=== PATIENT | female | born 1960 | race Caucasian/White ===

== ENCOUNTER 2017-01-21 11:13 | Day surgery (SDC) | payer BC ==
[~2017-01-21] VITALS: Ht 160 cm; Wt 72.0 kg
[~2017-01-21 11:13] MED LIST: FIBER PO; STOOL SOFTENER PO
[2017-01-21 12:15] VITALS: Ht 160 cm; Wt 72.0 kg
[2017-01-21 12:19] VITALS: BP 116/61; PULSE 64; RESP 20
[2017-01-21 12:50] LABS: INR 0.91; PROTIME 12.3 Sec (12.2-14.2)
[2017-01-21 12:51] LABS: PARTIAL THROMBOPLASTIN TIME 28.3 Sec (25.0-35.0)
[2017-01-21 12:51] LABS: ADD UMIC YES; URINE BILIRUBIN (Dip) NEGATIVE (NEGATIVE); URINE BLOOD (Dip) TRACE (NEGATIVE); URINE COLOR LT. YELLOW (YELLOW); URINE GLUCOSE (Dip) NEGATIVE (NEGATIVE); URINE KETONES (Dip) NEGATIVE (NEGATIVE); URINE LEUKOCYTE ESTERASE (Dip) 1+ (NEGATIVE); URINE NITRITE (Dip) POSITIVE (NEGATIVE); URINE TOTAL PROTEIN (Dip) NEGATIVE (NEGATIVE); URINE UROBILINOGEN (Dip) 0.2 E.U./dL (0.1-1.0)
[2017-01-21 13:06] LABS: BACTERIA,URINE MANY; URINE RBCS 0-2 /HPF (0)
== END 2017-01-21 18:04 | disposition home or self-care (01) ==
LOC: SDS 11:13
PROVIDERS: ATTEND Podiatrist Primary Podiatric Medicine
DX: G57.62 Lesion of plantar nerve, left lower limb (principal); Z53.9 Procedure and treatment not carried out, unspecified reason
CPT/HCPCS: 81001; 81003; 85610; 85730

== ENCOUNTER 2017-01-28 07:08 | Day surgery (SDC) | payer BC ==
[2017-01-28] VITALS (12 sets, daily range): BP systolic 97–128; BP diastolic 51–64; PULSE 60–86; RESP 14–18; Ht 160 cm; Wt 73.0 kg
[~2017-01-28] VITALS: Ht 160 cm; Wt 73.0 kg
[~2017-01-28 07:08] MED LIST changes: +ATROPINE 1 MG/10 ML SYRINGE IV PRN; +DIPHENHYDRAMINE 50 MG INJ IV PRN; +EPHEDrine SULFATE 50 MG/5 ML SYG IV PRN; +FENTAnyl 50 MCG/ML VIAL IV PRN; -FIBER PO; +HYDROmorphONE (0.2 MG/ML) 10ML SYG IV PRN; +LABETALOL HCL 20MG INJ IV PRN; +MEPERIDINE 25 MG INJ IV PRN; +MIDAZOLAM 1 MG/ML 2 ML INJ IV PRN; +ONDANSETRON 4 MG INJ IV PRN; +OXYCODONE/ACETAMINOPHEN (5/325) TAB PO PRN; -STOOL SOFTENER PO; +hydrALAzine 20 MG INJ IV PRN; +morphine (1 MG/ML) 10ML SYRINGE IV PRN
--- NOTE | 2017-01-28 08:30 | HPN ---
Date/Time of Note Date/Time of Note DATE: 01/28/17 TIME: 08:30 Interval H&P Admission Note Pt. seen H&P reviewed: No system changes TAWANA SNYDER DPM Jan 28, 2017 08:30
[2017-01-28] MEDS ORDERED: NITR-58 PO (08:34)
[2017-01-28] MEDS ORDERED: AMIT50TA3 PO (08:34)
[2017-01-28] MEDS ORDERED: BUPIVACAINE 0.5% (SDV) 30 ML INJ ONE (09:36)
[2017-01-28] MEDS ORDERED: LIDOCAINE 0.5% (MDV) 50 ML INJ ONE (09:37)
--- NOTE | 2017-01-29 00:53 | OPR ---
DATE OF OPERATION: 01/28/2017 SURGEON: TAWANA SNYDER DPM ANESTHESIOLOGIST: Dr. Al. ANESTHESIA: Local with IV sedation. PREOPERATIVE DIAGNOSIS: Painful Hand's neuroma, left foot. POSTOPERATIVE DIAGNOSIS: Painful Hand's neuroma, left foot. OPERATION PERFORMED: Excision of neurofibroma, left third intermetatarsal space. DESCRIPTION OF PROCEDURE: The patient was brought into the operating room, placed on a table in a s ecure supine position. Cardiac monitoring, IV sedation, and an ankle pneumatic tourniquet were util ized for this case. Preoperatively, a total of 8 mL of 0.5% Marcaine plain mixed with 2% lidocaine plain were infiltrated in the form of a local block to the left foot. Upon achieving anesthesia, th e left foot and leg were prepped and draped in the usual sterile manner. The ankle pneumatic tourni quet was then inflated to 250 mmHg. Procedure #1 was then performed, excision of neurofibroma, left third intermetatarsal space. A 4 cm dorsal incision was placed between the 3rd and 4th metatarsals . Incision was deepened. Superficial bleeders were cauterized and bovied as necessary. The incisi on was then deepened down through the deep intermetatarsal ligament, which was severed. The hypertr ophic nerve tissue was identified and its terminal branches. The nerve trunk and its terminal branc hes was transected proximal to the metatarsal heads and buried into the adjacent muscle belly. The surgical site was irrigated with sterile saline mixed with bacitracin solution. Deep tissue was edinson sed with 4-0 Vicryl simple interrupted sutures. The skin edges were reapproximated with 3-0 Prolene subcuticular running stitch. The dressing consisted of tincture of benzoin, quarter-inch Steri-Str ips, Xeroform gauze, 4 x 4 gauze, 4-inch Kerlix roll and 2 inch Coban into a semi-compressive dressi ng. Immediate hyperemia was noted to all digits of the left foot upon deflating the ankle tournique t. No intraoperative complications were encountered. Patient tolerated the above procedure well, l eft the OR with vital signs stable and satisfactory. The patient will follow up 1 week postop. Dictated By: TAWANA MARTINEZ/MILADIS Conf#: [id number] DID#: [id number]
== END 2017-01-28 12:00 | disposition home or self-care (01) ==
LOC: SDS 07:08
PROVIDERS: ATTEND Podiatrist Primary Podiatric Medicine
DX: G57.62 Lesion of plantar nerve, left lower limb (principal); E78.5 Hyperlipidemia, unspecified; E66.9 Obesity, unspecified; Z68.28 Body mass index [BMI] 28.0-28.9, adult
CPT/HCPCS: 28080; 84703; 88304; J0330; J0690; J2250; J2405; J2710; J3010; L3260; Z7512; Z7610; 81001; 85610; 85730